=== PATIENT | female | born 1990 | race African-American/Black ===

== ENCOUNTER 2024-01-13 13:52 | Emergency (ER) | payer MEDICAID ==
[~2024-01-13] VITALS: Ht 160 cm; Wt 44.0 kg
[2024-01-13] MEDS ORDERED: IBUP-2030 MT (16:26)
[2024-01-13] MEDS ORDERED: AMOX50SU15 MT (16:26)
[2024-01-13 17:05] LABS: CLARITY URINE CLEAR (CLEAR); COLOR URINE YELLOW (YELLOW); GLUCOSE URINE NEGATIVE (NEGATIVE); KETONES URINE NEGATIVE (NEGATIVE); LEUKOCYTE ESTERASE URINE TRACE (NEGATIVE); NITRITE URINE NEGATIVE (NEGATIVE); OCCULT BLOOD URINE NEGATIVE (NEGATIVE); PH URINE 8.5 (4.5-8.0); PROTEIN URINE NEGATIVE (NEGATIVE); SPECIFIC GRAVITY URINE 1.009 (1.005-1.030)
[2024-01-13 17:23] VITALS: BP 112/69; PULSE 75; RESP 16; TEMP 36.89184; O2SAT 100
[2024-01-13 17:25] LABS: HCG SCREEN NEGATIVE
[2024-01-13 17:36] LABS: BACTERIA URINE 1+; SQUAMOUS EPITHELIAL CELL URINE FEW /lpf (RARE/1+)
[2024-01-13 17:37] LABS: RBC URINE 0-2 /hpf (0-2); WBC URINE 0-2 /hpf (0-2)
== END 2024-01-13 17:25 | disposition home or self-care (01) ==
LOC: ER 13:52
DX: R07.0 Pain in throat (principal); J45.909 Unspecified asthma, uncomplicated; Z88.0 Allergy status to penicillin
CPT/HCPCS: 81003; 81025; 84703; 99283